=== PATIENT | male | born 1945 | race Caucasian/White ===

== ENCOUNTER 2018-03-12 06:05 | Day surgery (SDC) | payer MEDICARE, BC ==
[2018-03-11 11:11] LABS: BASOPHILS % (AUTO) 0.6 % (0-1); EOSINOPHILS # (AUTO) 0.1 X10'3 (0-0.9); EOSINOPHILS % (AUTO) 1.4 % (0-6); HEMATOCRIT 37.8 % (42.0-52.0); HEMOGLOBIN 12.7 g/dl (14.0-17.9); LYMPHOCYTES # (AUTO) 2.1 X10'3 (1.1-4.8); LYMPHOCYTES % (AUTO) 32.9 % (21-51); MEAN CORPUSCULAR HEMOGLOBIN 29.7 PG (27.0-31.0); MEAN CORPUSCULAR HGB CONC 33.7 % (33.0-36.5); MEAN CORPUSCULAR VOLUME 88.3 FL (78-98); MONOCYTES # (AUTO) 0.6 X10'3 (0-0.9); MONOCYTES % (AUTO) 9.4 % (2-12); NEUTROPHILS # (AUTO) 3.6 X10'3 (1.8-7.7); NEUTROPHILS % (AUTO) 55.7 % (42-75); PLATELET COUNT 242 X10'3 (140-440); RED BLOOD COUNT 4.28 X10'6 (4.70-6.10); RED CELL DISTRIBUTION WIDTH 14.7 % (11.5-14.5); WHITE BLOOD COUNT 6.5 X10'3 (4.5-11.0)
[2018-03-11 11:22] LABS: INR 1.1 INR; PARTIAL THROMBOPLASTIN TIME 24 SECONDS (22-32); PROTHROMBIN TIME 11.3 SECONDS (9.0-12.0)
[2018-03-11 11:23] LABS: ALBUMIN 3.9 G/DL (3.4-5.0); ANION GAP 4 (8-16); BLOOD UREA NITROGEN 18 MG/DL (7-18); BUN/CREATININE RATIO 15.7 (5.4-32.0); CALCIUM 9.7 MG/DL (8.5-10.1); CHLORIDE 105 MMOL/L (99-107); CREATININE 1.15 MG/DL (0.60-1.10); GLUCOSE 94 MG/DL (70-104); POTASSIUM 3.8 MMOL/L (3.5-5.1); SODIUM 140 MMOL/L (135-145); TOTAL CARBON DIOXIDE 30.8 MMOL/L (24-32); eGFR 62 ML/MIN
[~2018-03-12] VITALS: Ht 182.9 cm; Wt 94.3 kg
[2018-03-12] VITALS (15 sets, daily range): BP systolic 97–149; BP diastolic 59–75
[~2018-03-12 06:05] MED LIST: ALLO100T PO; AMI25T PO; ASPI-611 PO; ATOR40TA PO; ATOR80TA PO; BUSP10TA11 PO; CHOL200026 PO; CITA-278 PO; CLOP75TA35 PO; DIPH-423 PO; FENO145T38 CORPAK; GABA300C PO; HYDR-3564 PO; ISOS60TA PO; METH-35 PO; METO100T7 PO; MULT-1141 PO; NITR0.4T51 SL; TRAM50TA2 PO
[2018-03-12] MEDS ORDERED: LORazepam 0.5 MG tablet PO PRN (06:20)
[2018-03-12] MEDS ORDERED: normal saline 1000ml 1,000 ML IV SCH (06:20)
[2018-03-12] MEDS ORDERED: diphenhydrAMINE 25mg capsule PO PRN (06:20)
[2018-03-12] MEDS ORDERED: HYDR-565 PO (06:36)
[2018-03-12] MEDS ORDERED: METO100T7 PO (06:36)
[2018-03-12] MEDS ORDERED: FENO145T38 PO (06:36)
[2018-03-12] MEDS ORDERED: FLO0.4C PO (06:36)
[2018-03-12] MEDS ORDERED: BACL10TA PO (06:36)
[2018-03-12] MEDS ORDERED: nitroGLYCERIN-Tridil 50MG/D5W 250 ML IV ONE (08:34)
[2018-03-12] MEDS ORDERED: midazolam 2 mg/2 ml injection ONE (08:34)
[2018-03-12] MEDS ORDERED: heparin 1,000unit/ml 10ml vial 10 ML ONE (08:34)
[2018-03-12] MEDS ORDERED: fentaNYL/PF 50MCG/1 ML 2ML syringe ONE (08:34)
[2018-03-12] MEDS ORDERED: lidocaine 1%/epinephrine 1:100,000 injection 50ml vial ONE (08:35)
[2018-03-12] MEDS ORDERED: iohexol 350 MG/ML 50ML vial IV ONE (08:35)
[2018-03-12] MEDS ORDERED: iohexol 350MG/ML 100ml bottle IV ONE (08:35)
[2018-03-12] MEDS ORDERED: HYDROcodone/acetaminophen 10/325mg tab PO ONE (12:40)
== END 2018-03-12 17:05 | disposition home or self-care (01) ==
LOC: SSTAY O 06:05
PROVIDERS: ATTEND Internal Medicine Cardiovascular Disease
DX: I25.118 Atherosclerotic heart disease of native coronary artery with other forms of angina pectoris (principal); I10 Essential (primary) hypertension; E78.5 Hyperlipidemia, unspecified; I25.2 Old myocardial infarction; K21.9 Gastro-esophageal reflux disease without esophagitis; N40.0 Benign prostatic hyperplasia without lower urinary tract symptoms; M19.90 Unspecified osteoarthritis, unspecified site; F41.8 Other specified anxiety disorders; F32.9 Major depressive disorder, single episode, unspecified; Z79.82 Long term (current) use of aspirin; Z79.891 Long term (current) use of opiate analgesic; Z79.01 Long term (current) use of anticoagulants; Z90.49 Acquired absence of other specified parts of digestive tract; Z95.5 Presence of coronary angioplasty implant and graft; Z96.653 Presence of artificial knee joint, bilateral; Z86.74 Personal history of sudden cardiac arrest; Z86.14 Personal history of Methicillin resistant Staphylococcus aureus infection; Z79.899 Other long term (current) drug therapy; Z98.890 Other specified postprocedural states; Z81.8 Family history of other mental and behavioral disorders; Z82.49 Family history of ischemic heart disease and other diseases of the circulatory system; Z80.42 Family history of malignant neoplasm of prostate; Z82.3 Family history of stroke; Z82.0 Family history of epilepsy and other diseases of the nervous system
CPT/HCPCS: 36415; 80048; 85025; 85610; 85730; 93005; 93458; 99152; 99153; A6257; C1769; J1644; J2250; J3010; J3490; J7030; Q0163; Q9967; A4620

== ENCOUNTER 2020-10-24 11:54 | Emergency (ER) | payer BC, MEDICARE ==
[~2020-10-24] VITALS: Ht 182.9 cm; Wt 95.5 kg
[~2020-10-24 11:54] MED LIST changes: -ATOR40TA PO; +BACL10TA PO; -CITA-278 PO; +CITA20TA28 PO; +CLOP75TA34 PO; -CLOP75TA35 PO; -FENO145T38 CORPAK; +FENO145T38 PO; +FLO0.4C PO; -HYDR-3564 PO; +HYDR-4353 PO; -ISOS60TA PO; -METH-35 PO; -TRAM50TA2 PO
[2020-10-24 12:09] VITALS: BP 116/87
== END 2020-10-24 14:21 | disposition home or self-care (01) ==
LOC: ER 11:54
DX: T84.84XA Pain due to internal orthopedic prosthetic devices, implants and grafts, initial encounter (principal); M25.461 Effusion, right knee; I10 Essential (primary) hypertension; Z98.890 Other specified postprocedural states; Z79.82 Long term (current) use of aspirin; Z79.899 Other long term (current) drug therapy; X58.XXXA Exposure to other specified factors, initial encounter; Y93.89 Activity, other specified; Y92.89 Other specified places as the place of occurrence of the external cause; Y99.8 Other external cause status
CPT/HCPCS: 73564; 99283

== ENCOUNTER → 2020-12-16 | Outpatient (CLI) | payer MEDICARE ==
[~2020-12-16] MED LIST changes: -ATOR80TA PO; -BACL10TA PO; -CHOL200026 PO; -CLOP75TA34 PO; -DIPH-423 PO; -FENO145T38 PO; +GABA600T PO; -HYDR-4353 PO; +ISOS30TA84 PO; -MULT-1141 PO
[2020-12-16 19:48] LABS: GLUCOSE 90 MG/DL (70-104); SODIUM 144 MMOL/L (135-145)
[2020-12-16 19:49] LABS: ALBUMIN 2.6 G/DL (3.4-5.0); ANION GAP 8 (8-16); BLOOD UREA NITROGEN 15 MG/DL (7-18); BUN/CREATININE RATIO 14.3 (5.4-32.0); C-REACTIVE PROTEIN 0.65 MG/DL (0.0-0.5); CALCIUM 8.6 MG/DL (8.5-10.1); CHLORIDE 106 MMOL/L (99-107); CREATININE 1.05 MG/DL (0.60-1.10); TOTAL CARBON DIOXIDE 30.2 MMOL/L (24-32); eGFR 69 ML/MIN
[2020-12-16 19:57] LABS: BASOPHILS # (AUTO) 0.1 X10'3 (0-0.2); BASOPHILS % (AUTO) 1.7 % (0-1); EOSINOPHILS # (AUTO) 0.2 X10'3 (0-0.9); EOSINOPHILS % (AUTO) 2.4 % (0-6); HEMATOCRIT 27.9 % (42.0-52.0); HEMOGLOBIN 9.3 g/dl (14.0-17.9); LYMPHOCYTES # (AUTO) 1.7 X10'3 (1.1-4.8); LYMPHOCYTES % (AUTO) 22.6 % (21-51); MEAN CORPUSCULAR HEMOGLOBIN 27.9 PG (27.0-31.0); MEAN CORPUSCULAR HGB CONC 33.5 g/dL (33.0-36.5); MEAN CORPUSCULAR VOLUME 83.5 FL (78-98); MEAN PLATELET VOLUME 7.7 FL (7.4-10.4); MONOCYTES # (AUTO) 0.8 X10'3 (0-0.9); MONOCYTES % (AUTO) 10.9 % (2-12); NEUTROPHILS # (AUTO) 4.7 X10'3 (1.8-7.7); NEUTROPHILS % (AUTO) 62.4 % (42-75); PLATELET COUNT 506 X10'3 (140-440); RED BLOOD COUNT 3.34 X10'6 (4.70-6.10); RED CELL DISTRIBUTION WIDTH 17.4 % (11.5-14.5); WHITE BLOOD COUNT 7.6 X10'3 (4.5-11.0)
== END | disposition home or self-care (01) ==
LOC: LAB SPEC 19:14
PROVIDERS: ATTEND Orthopaedic Surgery
DX: M19.90 Unspecified osteoarthritis, unspecified site (principal); I10 Essential (primary) hypertension
CPT/HCPCS: 36415; 80048; 85025; 85651; 86140

== ENCOUNTER → 2020-12-30 | Outpatient (CLI) | payer MEDICARE ==
[2020-12-30 11:40] LABS: BASOPHILS # (AUTO) 0.1 X10'3 (0-0.2); BASOPHILS % (AUTO) 1.2 % (0-1); EOSINOPHILS # (AUTO) 0.2 X10'3 (0-0.9); EOSINOPHILS % (AUTO) 2.7 % (0-6); HEMATOCRIT 29.6 % (42.0-52.0); HEMOGLOBIN 9.9 g/dl (14.0-17.9); LYMPHOCYTES # (AUTO) 1.2 X10'3 (1.1-4.8); LYMPHOCYTES % (AUTO) 19.3 % (21-51); MEAN CORPUSCULAR HEMOGLOBIN 27.7 PG (27.0-31.0); MEAN CORPUSCULAR HGB CONC 33.4 g/dL (33.0-36.5); MEAN PLATELET VOLUME 7.7 FL (7.4-10.4); MONOCYTES # (AUTO) 0.7 X10'3 (0-0.9); MONOCYTES % (AUTO) 11.7 % (2-12); NEUTROPHILS # (AUTO) 3.9 X10'3 (1.8-7.7); NEUTROPHILS % (AUTO) 65.1 % (42-75); PLATELET COUNT 236 X10'3 (140-440); RED BLOOD COUNT 3.57 X10'6 (4.70-6.10); RED CELL DISTRIBUTION WIDTH 17.2 % (11.5-14.5); WHITE BLOOD COUNT 5.9 X10'3 (4.5-11.0)
[2020-12-30 11:50] LABS: ALBUMIN 2.8 G/DL (3.4-5.0); ANION GAP 10 (8-16); BLOOD UREA NITROGEN 12 MG/DL (7-18); C-REACTIVE PROTEIN 1.51 MG/DL (0.0-0.5); CALCIUM 8.4 MG/DL (8.5-10.1); CHLORIDE 105 MMOL/L (99-107); GLUCOSE 81 MG/DL (70-104); POTASSIUM 3.9 MMOL/L (3.5-5.1); SODIUM 142 MMOL/L (135-145); TOTAL CARBON DIOXIDE 26.7 MMOL/L (24-32); eGFR > 90 ML/MIN
== END | disposition home or self-care (01) ==
LOC: LAB 10:57
PROVIDERS: ATTEND Internal Medicine Infectious Disease
DX: M19.90 Unspecified osteoarthritis, unspecified site (principal); I10 Essential (primary) hypertension
CPT/HCPCS: 36415; 80048; 85025; 85651; 86140

== ENCOUNTER 2023-08-17 08:56 | Inpatient (IN) | payer MEDICARE, OTHER ==
[~2023-08-17] VITALS: Ht 182.9 cm; Wt 80.7 kg
[2023-08-17 10:46] LABS: BASOPHILS # (AUTO) 0.1 X10'3 (0-0.2); BASOPHILS % (AUTO) 1.1 % (0-1); EOSINOPHILS % (AUTO) 0.2 % (0-6); HEMATOCRIT 40.9 % (42.0-52.0); HEMOGLOBIN 13.8 g/dl (14.0-17.9); LYMPHOCYTES % (AUTO) 18.9 % (21-51); MEAN CORPUSCULAR HGB CONC 33.7 g/dL (33.0-36.5); MEAN CORPUSCULAR VOLUME 88.8 FL (78-98); MEAN PLATELET VOLUME 8.7 FL (7.4-10.4); MONOCYTES # (AUTO) 0.5 X10'3 (0-0.9); NEUTROPHILS # (AUTO) 3.8 X10'3 (1.8-7.7); NEUTROPHILS % (AUTO) 70.8 % (42-75); PLATELET COUNT 242 X10'3 (140-440); RED BLOOD COUNT 4.61 X10'6 (4.70-6.10); RED CELL DISTRIBUTION WIDTH 14.8 % (11.5-14.5); WHITE BLOOD COUNT 5.4 X10'3 (4.5-11.0)
[2023-08-17 10:52] LABS: D-DIMER 0.26 MG/L FEU (0-0.50)
[2023-08-17 11:01] LABS: ALBUMIN 3.6 G/DL (3.4-5.0); ANION GAP 4 (8-16); BLOOD UREA NITROGEN 16 MG/DL (7-18); BUN/CREATININE RATIO 18.4 (10.0-20.0); CALCIUM 8.2 MG/DL (8.5-10.1); CHLORIDE 106 MMOL/L (99-107); CREATININE 0.87 MG/DL (0.60-1.10); GLUCOSE 101 MG/DL (70-104); POTASSIUM 3.9 MMOL/L (3.5-5.1); PRO BRAIN NATRIURETIC PEPTIDE 789 PG/ML (0-450); SODIUM 142 MMOL/L (135-145); TOTAL CARBON DIOXIDE 31.7 MMOL/L (24-32); eCRCL 76 ML/MIN; eGFR 85 ML/MIN
[2023-08-17] MEDS ORDERED: mag hydrox/Alum hydrox/simeth 30ml oral suspension PO PRN (12:45)
[2023-08-17] MEDS ORDERED: magnesium 4gm in 100ml NS 100 ML IV PRN (12:45)
[2023-08-17] MEDS ORDERED: magnesium Cl slow-release 64mg tablet PO PRN (12:45)
[2023-08-17] MEDS ORDERED: potassium Cl 40MEQ/1/2NS 520ml 520 ML IV PRN (12:45)
[2023-08-17] MEDS ORDERED: acetaminophen 325mg tablet PO PRN (12:45)
[2023-08-17] MEDS ORDERED: magnesium hydroxide 30ml (MOM) UD suspension PO PRN (12:45)
[2023-08-17] MEDS ORDERED: ondansetron/PF 4mg/2ml inj IV PRN (12:45)
[2023-08-17] MEDS ORDERED: magnesium 2GM in 50ml NS 50 ML IV PRN (12:45)
[2023-08-17] MEDS ORDERED: potassium Cl 20 mEq SR tablet PO PRN (12:45)
[2023-08-17] MEDS ORDERED: hydrALAZINE 20mg/ml inj. IV PRN (12:45)
[2023-08-17] MEDS: hydrALAZINE 20mg/ml inj. IV PRN (13:07)
[2023-08-17] MEDS ORDERED: metoprolol tartrate 1mg/ml inj IV PRN (13:25)
[2023-08-17] MEDS ORDERED: nitroGLYCERIN 0.4mg SUBLingual tab SL PRN (13:25)
[2023-08-17 14:02] LABS: CHOL/HDL RATIO 3.1 (0.00-4.99); CHOLESTEROL 135 MG/DL (0-200); HDL CHOLESTEROL 43 MG/DL (35-60); LDL CHOLESTEROL 78 MG/DL (50-100); TRIGLYCERIDES 65 MG/DL (20-135)
[2023-08-17 14:05] LABS: HEMOGLOBIN A1C 5.5 % (4.5-6.2)
[2023-08-17] MEDS: gabapentin 300mg capsule PO SCH ×2 (14:33→20:50)
[2023-08-17] MEDS: busPIRone 15mg tablet PO SCH (14:33)
[2023-08-17] MEDS: amLODIPine 5mg tablet PO SCH (14:33)
[2023-08-17 17:01] VITALS: BP 128/77; PULSE 64; RESP 14; TEMP 97.8; O2SAT 98
[2023-08-17 17:10] VITALS: RESP 14; O2SAT 16
[2023-08-17 18:00] VITALS: BP 147/74; PULSE 71; RESP 18; TEMP 97; O2SAT 96
[2023-08-17] MEDS: K and/or MAG REPLACEMENT MC SCH (20:00)
[2023-08-17] MEDS: atorvastatin 20mg tablet PO SCH (20:51)
[2023-08-17 22:00] VITALS: BP 128/74; PULSE 74; RESP 14; TEMP 97.7; O2SAT 95
[2023-08-18] VITALS (21 sets, daily range): BP systolic 88–165; BP diastolic 53–90; PULSE 59–94; RESP 13–28; TEMP 97.3–98.2; O2SAT 94–100
[2023-08-18 06:23] LABS: BASOPHILS # (AUTO) 0.1 X10'3 (0-0.2); BASOPHILS % (AUTO) 0.9 % (0-1); EOSINOPHILS % (AUTO) 0.3 % (0-6); HEMATOCRIT 39.6 % (42.0-52.0); HEMOGLOBIN 13.5 g/dl (14.0-17.9); LYMPHOCYTES # (AUTO) 1.2 X10'3 (1.1-4.8); LYMPHOCYTES % (AUTO) 19.3 % (21-51); MEAN CORPUSCULAR HEMOGLOBIN 30.2 PG (27.0-31.0); MEAN CORPUSCULAR VOLUME 88.7 FL (78-98); MEAN PLATELET VOLUME 8.4 FL (7.4-10.4); MONOCYTES # (AUTO) 0.8 X10'3 (0-0.9); NEUTROPHILS # (AUTO) 4.3 X10'3 (1.8-7.7); NEUTROPHILS % (AUTO) 67.5 % (42-75); PLATELET COUNT 228 X10'3 (140-440); RED BLOOD COUNT 4.46 X10'6 (4.70-6.10); RED CELL DISTRIBUTION WIDTH 14.8 % (11.5-14.5); WHITE BLOOD COUNT 6.4 X10'3 (4.5-11.0)
[2023-08-18 06:25] LABS: ALANINE AMINOTRANSFERASE 18 U/L (12-78); ALBUMIN 3.4 G/DL (3.4-5.0); ALBUMIN/GLOBULIN RATIO 1.2 (1.1-1.5); ALKALINE PHOSPHATASE 33 IU/L (46-116); ANION GAP 8 (8-16); ASPARTATE AMINO TRANSFERASE 27 U/L (10-37); BILIRUBIN,TOTAL 1.1 MG/DL (0.1-1.0); BLOOD UREA NITROGEN 16 MG/DL (7-18); BUN/CREATININE RATIO 19.3 (10.0-20.0); CALCIUM 8.2 MG/DL (8.5-10.1); CHLORIDE 106 MMOL/L (99-107); CREATININE 0.83 MG/DL (0.60-1.10); GLUCOSE 104 MG/DL (70-104); POTASSIUM 3.4 MMOL/L (3.5-5.1); SODIUM 143 MMOL/L (135-145); TOTAL CARBON DIOXIDE 29.4 MMOL/L (24-32); TOTAL PROTEIN 6.2 G/DL (6.4-8.2); eCRCL 79 ML/MIN; eGFR 89 ML/MIN
[2023-08-18] MEDS: metoprolol succinate 25mg (24-HOUR) SR. Tablet PO SCH (08:00)
[2023-08-18] MEDS: enoxaparin 40mg/0.4ml syringe SUBCUT SCH (09:17)
[2023-08-18] MEDS: cloNIDine 0.1 mg tablet PO PRN (09:17)
[2023-08-18] MEDS: aspirin 81mg, enteric-coated 1 TAB TABLET.DR PO SCH (09:17)
[2023-08-18] MEDS: potassium Cl 20 mEq SR tablet PO PRN (09:18)
[2023-08-18] MEDS: tamsulosin 0.4mg capsule PO SCH (09:18)
[2023-08-18] MEDS: citalopram 20mg tablet PO SCH (09:23)
[2023-08-18] MEDS: isosorbide mononitrate 30mg tab.SR.24H PO SCH (09:23)
[2023-08-18] MEDS: regadenoson 0.4mg/5ml syringe IV PRN (09:58)
[2023-08-18] MEDS: aminophylline 250mg/10ml inj. IV PRN (10:05)
[2023-08-18] MEDS: nitroGLYCERIN 0.4mg SUBLingual tab SL SCH (11:16)
[2023-08-19 06:49] LABS: BASOPHILS # (AUTO) 0.1 X10'3 (0-0.2); BASOPHILS % (AUTO) 1.1 % (0-1); EOSINOPHILS % (AUTO) 0.6 % (0-6); HEMATOCRIT 40.8 % (42.0-52.0); HEMOGLOBIN 13.7 g/dl (14.0-17.9); LYMPHOCYTES # (AUTO) 1.3 X10'3 (1.1-4.8); LYMPHOCYTES % (AUTO) 19.8 % (21-51); MEAN CORPUSCULAR HEMOGLOBIN 29.7 PG (27.0-31.0); MEAN CORPUSCULAR HGB CONC 33.6 g/dL (33.0-36.5); MEAN CORPUSCULAR VOLUME 88.5 FL (78-98); MEAN PLATELET VOLUME 8.6 FL (7.4-10.4); MONOCYTES # (AUTO) 0.8 X10'3 (0-0.9); MONOCYTES % (AUTO) 11.9 % (2-12); NEUTROPHILS # (AUTO) 4.3 X10'3 (1.8-7.7); NEUTROPHILS % (AUTO) 66.6 % (42-75); PLATELET COUNT 222 X10'3 (140-440); RED BLOOD COUNT 4.61 X10'6 (4.70-6.10); RED CELL DISTRIBUTION WIDTH 14.7 % (11.5-14.5); WHITE BLOOD COUNT 6.4 X10'3 (4.5-11.0)
[2023-08-19 07:00] VITALS: BP 160/85; PULSE 89; RESP 15; TEMP 97; O2SAT 98
[2023-08-19 07:00] LABS: ALANINE AMINOTRANSFERASE 20 U/L (12-78); ALBUMIN 3.5 G/DL (3.4-5.0); ALBUMIN/GLOBULIN RATIO 1.1 (1.1-1.5); ALKALINE PHOSPHATASE 40 IU/L (46-116); ANION GAP 4 (8-16); ASPARTATE AMINO TRANSFERASE 30 U/L (10-37); BLOOD UREA NITROGEN 28 MG/DL (7-18); BUN/CREATININE RATIO 25.5 (10.0-20.0); CALCIUM 9.2 MG/DL (8.5-10.1); CHLORIDE 106 MMOL/L (99-107); GLUCOSE 106 MG/DL (70-104); SODIUM 139 MMOL/L (135-145); TOTAL CARBON DIOXIDE 28.8 MMOL/L (24-32); TOTAL PROTEIN 6.6 G/DL (6.4-8.2); eCRCL 60 ML/MIN; eGFR 65 ML/MIN
[2023-08-19] MEDS: pantoprazole 40mg Tablet.DR PO SCH (08:14)
[2023-08-19 11:00] VITALS: BP 131/68; PULSE 65; RESP 11; TEMP 97.3; O2SAT 98
[2023-08-19] MEDS ORDERED: PANT40TA54 PO (11:18)
[2023-08-19] MEDS ORDERED: ATOR20TA66 PO (11:18)
[2023-08-19] MEDS ORDERED: NOR5T PO (11:18)
[2023-08-19] MEDS ORDERED: CELE-193 PO (11:18)
== END 2023-08-19 13:24 | disposition home or self-care (01) | DRG 206 ==
LOC: ER 08:57 → ED HOLD 12:52 → PCU 3S 16:42
PROVIDERS: ADMIT Internal Medicine; ATTEND Internal Medicine
PROC: 4A02XM4 Measurement of Cardiac Total Activity, External Approach (ICD-10-PCS; principal; 2023-08-18)
PROC: 3E033HZ Introduction of Radioactive Substance into Peripheral Vein, Percutaneous Approach (ICD-10-PCS; 2023-08-18)
DX: M94.0 Chondrocostal junction syndrome [Tietze] (principal); I16.1 Hypertensive emergency; I73.9 Peripheral vascular disease, unspecified; Z96.653 Presence of artificial knee joint, bilateral; E78.5 Hyperlipidemia, unspecified; F32.A Depression, unspecified; M10.9 Gout, unspecified; R00.1 Bradycardia, unspecified; K21.9 Gastro-esophageal reflux disease without esophagitis; F41.9 Anxiety disorder, unspecified; G62.9 Polyneuropathy, unspecified; I25.10 Atherosclerotic heart disease of native coronary artery without angina pectoris; Z63.4 Disappearance and death of family member; Z82.0 Family history of epilepsy and other diseases of the nervous system; Z82.49 Family history of ischemic heart disease and other diseases of the circulatory system; Z83.438 Family history of other disorder of lipoprotein metabolism and other lipidemia; Z95.5 Presence of coronary angioplasty implant and graft; Z90.49 Acquired absence of other specified parts of digestive tract; Z79.899 Other long term (current) drug therapy; Z79.82 Long term (current) use of aspirin; Z91.048 Other nonmedicinal substance allergy status
CPT/HCPCS: 36415; 71045; 78452; 80048; 80053; 80061; 83036; 83880; 84484; 85025; 85379; 87081; 93005; 93017; 93306; 93925; 99285; A9500; G0378; J0280; J0360; J1650; J2785